=== PATIENT | female | born 1995 | race Caucasian/White ===

== ENCOUNTER 2020-06-27 07:05 | Outpatient (REF) | payer BC, SELFPAY | END 2020-06-27 07:06 | disposition home or self-care (01) | LOC: HO.LAB 07:05 | PROVIDERS: Visit Provider Internal Medicine | DX: Z20.822 Contact with and (suspected) exposure to COVID-19 (principal) | CPT/HCPCS: 36415; C9803; U0003 ==

== ENCOUNTER 2022-03-27 08:28 | Emergency (ER) | payer OTHER, SELFPAY | END 2022-03-27 11:05 | disposition left against medical advice (07) | PROVIDERS: Emergency Provider Emergency Medicine; PCP Internal Medicine | DX: E86.0 Dehydration (principal); R11.2 Nausea with vomiting, unspecified ==

== ENCOUNTER 2022-03-28 14:26 | Outpatient (REF) | payer OTHER, SELFPAY ==
[2022-03-28 15:09] LABS: Binax Now Covid-19 Ag Negative (Negative)
[2022-03-28 15:10] LABS: Binax Internal Control QC Valid
== END 2022-03-28 14:27 | disposition home or self-care (01) ==
LOC: HO.HMGCLDS 14:26
PROVIDERS: PCP Internal Medicine
DX: Z20.822 Contact with and (suspected) exposure to COVID-19 (principal); J02.9 Acute pharyngitis, unspecified
CPT/HCPCS: 87811; C9803

== ENCOUNTER 2022-08-28 11:13 | Outpatient (REF) | payer OTHER, SELFPAY ==
[2022-08-28 13:48] LABS: MANUAL DIFF FLAG NO
[2022-08-28 14:05] LABS: Basophils Percent Auto 0.3 % (0-2); Eosinophils Absolute Auto 0.1 X10*3/uL (0.0-0.4); Eosinophils Percent Auto 1.1 % (0-4); Hematocrit 39.5 % (37.0-47.0); Hemoglobin 13.3 g/dl (12.0-16.0); Imm Gran Abs Auto 0.02 X10*3/uL (0.00-0.03); Imm Gran Pct Auto 0.3 % (0.0-0.4); Lymphocytes Absolute Auto 1.9 X10*3/uL (1.2-4.9); Lymphocytes Percent Auto 25.1 % (20-40); Mean Corpuscular HGB Conc 33.7 g/dl (31.0-35.0); Mean Corpuscular Hemoglobin 28.5 pg (27.0-33.0); Mean Corpuscular Volume 84.6 fL (80.0-98.0); Monocytes Absolute Auto 0.4 X10*3/uL (0.1-1.2); Monocytes Percent Auto 5.6 % (2-11); Neutrophils Absolute Auto 5.1 x10*3/uL (2.0-8.3); Neutrophils Percent Auto 67.6 % (45-73); Platelet Count 286 X10*3/uL (160-400); Red Blood Count 4.67 X10*6/uL (4.20-5.50); Red Cell Distribution Width 11.9 % (11.0-16.0); White Blood Count 7.6 X10*3/uL (4.8-10.8)
[2022-08-28 14:24] LABS: Alanine Aminotransferase 11 U/L (0-31); Anion Gap 12 (12-20); Aspartate Amino Transferase 20 U/L (5-31); Blood Urea Nitrogen 10 mg/dL (9-16); Calcium 9.1 mg/dL (8.4-10.2); Carbon Dioxide 24 mmol/L (22-29); Chloride 109 mmol/L (96-108); Cholesterol 196 mg/dL; Estimated Glomerular Filt Rate > 60; Glucose Fasting 84 mg/dL (60-99); HDL Cholesterol 60 mg/dL; LDL Cholesterol Calculated 127 mg/dl; Potassium 3.6 mmol/L (3.3-5.1); Sodium 141 mmol/L (135-145); Triglycerides 47 mg/dL
[2022-08-28 14:39] LABS: TSH reflex Free T4 0.72 uIU/mL (0.32-4.0); Vitamin D 25-OH Total 11.3 ng/mL (>30)
== END 2022-08-28 11:14 | disposition home or self-care (01) ==
LOC: HO.HMGCLDS 11:13
PROVIDERS: PCP Internal Medicine; Visit Provider Internal Medicine
DX: Z00.00 Encounter for general adult medical examination without abnormal findings (principal); I49.9 Cardiac arrhythmia, unspecified
CPT/HCPCS: 36415; 80048; 80061; 82306; 84443; 84450; 84460; 85025

== ENCOUNTER 2023-03-09 16:03 | Outpatient (AMB) | payer OTHER, SELFPAY ==
--- NOTE | 2023-03-09 16:00 | A.OFFPC_ITS ---
Intake Visit Reasons: Android/ [phone]/ Anxiety medication Intake Note: Pt is having a telehealth visit to discuss anxiety med Allergies Sulfa (Sulfonamide Antibiotics) Adverse Reaction (Verified 03/09/23 16:34) swells Medication List - Last Reconciled 03/09/23 by Abril Beauchamp MD buspirone 5 mg PO BID PRN clobetasol 0.05% 1 appl topical BID 2 weeks levonorgestrel-ethinyl estrad 0.1-20 mg-mcg ([place]ia) 1 tab PO DAILY Tobacco use date assessed: 03/09/23 Dental Screening Dental Screen Date: 03/09/23 Did you have a dental visit in the last 12 months?: Yes Did you have a dental problem in the last 6 months where you did not have access to dental care?: No Was dental information given to patient?: Patient has dentist HPI Android/ [phone]/ Anxiety medication HPI Details 28-year-old lady [facility] follow-up on her anxiety disorder. She was started on buspirone 5 mg per tablet to take 1 tablet to 2 3 times a day. Patient states that she has just been taking it in the morning, which has been helping a lot with controlling her anxiety attacks. There are times that she has to take an extra dose in the afternoon with attend social event. Denies experiencing any side effects from the medication. [facility] Medical History Generalized anxiety disorder History of psoriasis Sinus arrhythmia seen on electrocardiogram Sinus bradycardia on ECG Hx of major depression Surgical History No pertinent past surgical history Family History Maternal Grandfather Mental health disorder Mother Mental health disorder ADHD Social History Housing: House Alcohol intake: never Patient Tobacco Use Status: Never used Tobacco e-Cigarette/Vaping Use: Never Used Substance Use Type: Marijuana service: No Current occupational status: employed Cognitive needs: No Hearing needs: No Vision needs: No Questionnaire Thrive Questionnaire Date Thrive assessed: 11/19/22 VALERIANO-7 AMB Questionnaire VALERIANO-7 Date VALERIANO - 7 assessed: 03/09/23 Feeling nervous, anxious, or on edge: 1 = Several days Not being able to stop or control worryin = Not at all Worrying too much about different things: 0 = Not at all Trouble relaxin = Not at all Being so restless that it is hard to sit still: 0 = Not at all Becoming easily annoyed or irritable: 0 = Not at all Feeling afraid as if something awful might happen: 0 = Not at all Total VALERIANO-7 score (0-4 normal; 5-9 mild; 10-14 moderate; 15-21 severe): 1 Source: Developed by Drs. Carlos Cheney, Sola Allen, Corby Thibodeaux and colleagues, with an educational luis armando from [employer]. VALERIANO-7 Assessment Billing VALERIANO-7 Assessment Tool: VALERIANO-7 Assessment 53419 Review of Systems Const Denies difficulty sleeping, Denies lethargy, Denies malaise and Denies poor appetite ENT Reports no additional complaints Card Denies chest pain, Denies chest pain with activity, Denies rapid heart rate, Denies lightheadedness and Denies palpitations Resp Reports no additional complaints GI Denies abdominal pain, Denies change in bowel habits and Denies change in stool character Musc Reports no additional complaints Skin/Breast Denies rash Neuro Reports no additional complaints Psych Reports as per HPI and Denies panic attacks Endo Denies palpitations Physical exam (Primary Care) Tobacco/Smoking Status: Tobacco use Status Tobacco use date assessed 03/09/23 03/09/23 16:03 Patient Tobacco Use Status Never used Tobacco 03/09/23 16:03 e-Cigarette/Vaping Use Never Used 03/09/23 16:03 Thrive Assessment: Date of Thrive Assessment Date Thrive assessed 11/19/22 03/09/23 16:03 Telehealth Telehealth Location of provider rendering services: practice address Location of patient: address on file Patient Identification confirmed using: Name, : Yes Telehealth method: video Patient verbally consented to treatment: Yes Patient verbally consented to billing insurance company: Yes Patient informed of any privacy concerns related to visit: Yes Minutes spent on Phone/Video with Pt.: 15 Assessment and Plan Assessment & Plan (1) Generalized anxiety disorder: Code(s): F41.1 - Generalized anxiety disorder Plan: States that she has been doing better, with anxiety controlled on buspirone, has just been taking it once a day in the morning, and occasionally has taken it in the evening as well as needed for acute anxiety attacks. Discussed other w ays to relieve stress including : exercise or a massage, Get enough rest, Avoid alcohol, caffeine, nicotine, and illegal drugs which can increase your anxiety level and cause sleep problems. Medications: Changed From buspirone 5 mg PO BID PRN F41.1 - Generalized anxiety disorder To buspirone 5 mg PO BID 3 months 180 tabs 1RF F41.1 - Generalized anxiety disorder Coding Level of Care Code Tele Est Pt Level 3 (11333) Diagnoses Generalized anxiety disorder F41.1 Additional Codes VALERIANO-7 Assessment Billing - VALERIANO-7 Assessment Tool: VALERIANO-7 Assessment 28039 ([id number])
== END 2023-03-09 16:45 | disposition home or self-care (01) ==
PROVIDERS: PCP Internal Medicine; Visit Provider Internal Medicine
DX: F41.1 Generalized anxiety disorder (principal)
CPT/HCPCS: 99213

== ENCOUNTER 2023-10-19 09:38 | Outpatient (AMB) | payer OTHER, SELFPAY ==
--- NOTE | 2023-10-19 10:00 | MHC.PC.OV ---
Vital Signs 10/19/23 10:12 Height 5 ft 7 in Weight 127 lb BMI 19.9 BP 100/60 Blood Pressure Location Lt brachial Position Sitting Pulse 69 Pulse Source Pulse Oximeter Pulse Oximetry (%) 97 Oxygen Delivery Method Room Air Intake Visit Reasons: Annual PE Intake Note: Pt is here today for her PE: Last papsmear 09/18/22 Allergies Sulfa (Sulfonamide Antibiotics) Adverse Reaction (Verified 10/19/23 10:39) jailene Medication List - Last Reconciled 10/19/23 by Abril Beauchamp MD buspirone 5 mg PO BID 3 months clobetasol 0.05% 1 appl topical BID 2 weeks levonorgestrel-ethinyl estrad 0.1-20 mg-mcg ([place]ia) 1 tab PO DAILY Tobacco use date assessed: 10/19/23 Dental Screening Dental Screen Date: 10/19/23 Did you have a dental visit in the last 12 months?: Yes Did you have a dental problem in the last 6 months where you did not have access to dental care?: No Was dental information given to patient?: Patient has dentist HPI Annual PE HPI Details 28-year-old lady here today for her physical exam. She goes to her own OB at [facility] , last Pap smear was 09/18/22, currently on control pills. Has generalized anxiety disorder currently on buspirone 5 mg , which he takes only as needed, which has been helping controlling her anxiety attacks. She sees [facility] for her scalp psoriasis and eczema and ears, currently on clobetasol. She sees her own eye doctor and has been advised to wear glasses for distance. [facility] Medical History Vitamin D deficiency Psoriasis Generalized anxiety disorder Sinus arrhythmia seen on electrocardiogram Sinus bradycardia on ECG Surgical History No pertinent past surgical history Family History Maternal Grandfather Mental health disorder Mother Mental health disorder ADHD Social History Housing: House Alcohol intake: never Patient Tobacco Use Status: Never used Tobacco e-Cigarette/Vaping Use: Never Used Substance Use Type: Marijuana service: No Current occupational status: employed Cognitive needs: No Hearing needs: No Vision needs: No Female Reproductive History Menstrual control method: pills Date of last pap smear: 11/18/22 Other: Goes to [facility] Pap and pelvic exam Questionnaire PHQ-9 Over the last 2 weeks, how often have you been bothered by any of the following problems? 1. Little interest or pleasure in doing things: not at all 2. Feeling down, depressed, or hopeless: not at all 3. Trouble falling or staying asleep, or sleeping too much: not at all 4. Feeling tired or having little energy: several days 5. Poor appetite or overeating: not at all 6. Feeling bad about yourself - or that you are a failure or have let yourself or your family down: not at all 7. Trouble concentrating on things, such as reading the newspaper or watching television: not at all 8. Moving or speaking so slowly that other people could have noticed. Or the opposite - being so fidgety or restless that you have been moving around a lot more than usual: not at all 9. Thoughts that you would be better off or of hurting yourself in some way: not at all Total score: 1 Depression Screening Interpretation: Negative Depression Screening Done: Yes 42885 - PHQ-9 Billing: Yes Source: Developed by Drs. Carlos Cheney, Sola Allen, Corby Thibodeaux and colleagues, with an educational luis armando from [employer]. Thrive Questionnaire Date Thrive assessed: 10/19/23 I am a: Patient What is your living situation today?: I have a steady place to live Within the past 12 months, did the food you bought not last and you didn't have the money to get more?: Never true Within the past 12 months, did you worry whether your food would run out before you got money to buy more?: Never true Do you have trouble paying for medicines?: No Do you have trouble paying your heating and electricity bill?: No Do you have trouble taking care of your child, family member or friend?: No Do you have trouble with day-to-day activities such as bathing, preparing meals, shopping, managing finances, etc.?: No Are you currently unemployed and looking for a job?: No Are you interested in more education?: Yes THRIVE Score: 0 AUDIT C Alcohol Use Questionnaire (AUDIT-C) 1. How often do you have a drink containing alcohol?: Monthly or less 2. How many drinks containing alcohol do you have on a typical day when you are drinking?: 1 or 2 3. How often do you have six or more drinks on one occasion?: Never Total Score: 1 VALERIANO-7 AMB Questionnaire VALERIANO-7 Date VALERIANO - 7 assessed: 10/19/23 Feeling nervous, anxious, or on edge: 1 = Several days Not being able to stop or control worryin = Not at all Worrying too much about different things: 1 = Several days Trouble relaxin = Several days Being so restless that it is hard to sit still: 0 = Not at all Becoming easily annoyed or irritable: 1 = Several days Feeling afraid as if something awful might happen: 0 = Not at all Total VALERIANO-7 score (0-4 normal; 5-9 mild; 10-14 moderate; 15-21 severe): 4 Source: Developed by Drs. Carlos Cheney, Sola Allen, Corby Thibodeaux and colleagues, with an educational luis armando from [employer]. VALERIANO-7 Assessment Billing VALERIANO-7 Assessment Tool: VALERIANO-7 Assessment 42275 Review of Systems Const Denies difficulty sleeping, Denies lethargy, Denies malaise and Denies poor appetite Eyes Reports no additional complaints ENT Reports no additional complaints Card Denies chest pain, Denies chest pain with activity, Denies rapid heart rate, Denies lightheadedness and Denies palpitations Resp Reports no additional complaints GI Denies abdominal pain, Denies change in bowel habits and Denies change in stool character Reports no additional complaints Musc Reports no additional complaints Skin/Breast Reports as per HPI Neuro Reports no additional complaints Psych Reports as per HPI and Denies panic attacks Endo Denies palpitations Otilio/Lymph Reports no additional complaints Aller/Immun Reports no additional complaints Physical exam (Primary Care) Vital Signs: Last Vital Signs Pulse 69 10/19/23 10:12 BP 100/60 10/19/23 10:12 Pulse Ox 97 10/19/23 10:12 Oxygen Delivery Method Room Air 10/19/23 10:12 BMI result Body Mass Index 19.9 Tobacco/Smoking Status: Tobacco use Status Tobacco use date assessed 10/19/23 10/19/23 10:11 Patient Tobacco Use Status Never used Tobacco 10/19/23 10:04 e-Cigarette/Vaping Use Never Used 10/19/23 10:04 PHQ-9: PHQ-9 Score PHQ-9: Total score 2 10/19/23 10:19 Depression Screening Interpretation: Negative Thrive Assessment: Date of Thrive Assessment Date Thrive assessed 10/19/23 10/19/23 10:19 Const Other: Alert oriented x3, no acute distress noted ambulatory with normal gait HENMT Head: Yes normocephalic and Yes atraumatic Ears: hearing grossly normal bilaterally, TM's normal bilaterally and EAC's normal General nose exam: Normal external nose present and No nasal discharge present Face and sinus: Yes face symmetric Mouth: Normal oral and palatal mucosa present and moist mucous membranes Eyes General: appearance normal, both eyes and all related structures Neck Neck: Yes full ROM, Yes no lymphadenopathy and Yes supple Thyroid: Thyroid normal Chest Chest palpation & inspection: normal inspection of the chest and normal palpation of entire chest wall Breast/axilla palpation: normal palpation of the breasts and normal palpation of the axillae Resp Effort & Inspection: normal respiratory effort and able to speak in complete sentences Auscultation: clear to auscultation bilaterally Cardio Other: S1-S2 present, with occasional irregular beats GI Palpation (GI): Soft to palpation, nontender, no guarding and no masses Auscultation: normal bowel sounds Other: Goes to OBGYN for her routine pelvic exam General: Yes no CVA tenderness Back/Spine/Pelvis Back: no CVA tenderness Skin General skin exam: no rashes or lesions noted Neuro General: gait normal, tone normal, moves all extremities, Normal light touch and pain sensation, no focal motor deficits and CN's II-XI intact bilaterally Extrem General: Yes full ROM, Yes no joint enlargement, Yes no pedal edema, Yes no calf tenderness and Yes normal gait Psych Appearance: grossly normal and well kempt Mental Status: mental status grossly normal Speech and movement: Normal speech and movement present Affect: normal affect Thought process: Normal thought process present Thought content: Normal thought content present Assessment and Plan Assessment & Plan (1) Annual visit for general adult medical examination with abnormal findings: Code(s): Z00.01 - Encounter for general adult medical examination with abnormal findings Plan: Will check appropriate labs. Continue with regular dental visit every 6 months and regular eye exams, at least every 2 years. Take adequate calcium in diet and vitamin-D 3 at 2000 IU per cap once a day, in addition to weight-bearing exercises to help maintain good muscle tone and weight control. Instructed to do self-breast exam, and recommended to get yearly mammogram, starting at age 40. Up-to-date with her cervical cancer screening and pelvic exam, goes to [facility] OBGYN she has had 2 COVID vaccines, does not want to booster nor does she want to get a flu vaccine, declined Tdap (2) Generalized anxiety disorder: Code(s): F41.1 - Generalized anxiety disorder Plan: Takes buspirone only as needed, which has been helping. Does not want to completely stop taking the medication. (3) Psoriasis: Comment: back of scalp , sees [facility] Code(s): L40.9 - Psoriasis, unspecified Plan: Currently on clobetasol, sees [facility] (4) Vitamin D deficiency: Code(s): E55.9 - Vitamin D deficiency, unspecified Plan: Will check vitamin-D left Orders: Orders Lipid Panel Today E55.9 - Vitamin D deficiency, unspecified, F41.1 - Generalized anxiety disorder, L40.9 - Psoriasis, unspecified, Z00.01 - Encounter for general adult medical examination with abnormal findings, Z13.220 - Encounter for screening for lipoid disorders Aspartate Amino Transferase Today E55.9 - Vitamin D deficiency, unspecified, F41.1 - Generalized anxiety disorder, L40.9 - Psoriasis, unspecified, Z00.01 - Encounter for general adult medical examination with abnormal findings, Z13.220 - Encounter for screening for lipoid disorders Vitamin D 25-OH Total Today E55.9 - Vitamin D deficiency, unspecified, F41.1 - Generalized anxiety disorder, L40.9 - Psoriasis, unspecified, Z00.01 - Encounter for general adult medical examination with abnormal findings, Z13.220 - Encounter for screening for lipoid disorders Alanine Aminotransferase Today E55.9 - Vitamin D deficiency, unspecified, F41.1 - Generalized anxiety disorder, L40.9 - Psoriasis, unspecified, Z00.01 - Encounter for general adult medical examination with abnormal findings, Z13.220 - Encounter for screening for lipoid disorders Coding Level of Care Code Est Pt Prev Care 18-39y(71238) Diagnoses Annual visit for general adult medical examination with abnormal findings Z00.01 Generalized anxiety disorder F41.1 Psoriasis L40.9 Vitamin D deficiency E55.9 Additional Codes VALERIANO-7 Assessment Billing - VALERIANO-7 Assessment Tool: VALERIANO-7 Assessment 52184 ([id number])
[2023-10-19 10:12] VITALS: BP 100/60; PULSE 69; O2SAT 97; BMI 19.9
== END 2023-10-19 11:53 | disposition home or self-care (01) ==
PROVIDERS: PCP Internal Medicine; Visit Provider Internal Medicine
DX: Z00.00 Encounter for general adult medical examination without abnormal findings (principal); F41.1 Generalized anxiety disorder; L40.9 Psoriasis, unspecified; E55.9 Vitamin D deficiency, unspecified
CPT/HCPCS: 99395